=== PATIENT | male | born 1945 | race Caucasian/White ===

== ENCOUNTER 2023-07-01 21:40 | Emergency (ER) | payer MEDICARE, OTHER ==
[2023-07-01] MEDS ORDERED: Tetracaine 0.5% PF 4 ML BOT ONE (21:45)
[2023-07-01] MEDS ORDERED: Fluorescein Opthalmic Strip ONE (21:45)
[2023-07-01] MEDS ORDERED: Erythromycin Base 0.5% Oint 1 GM TUBE ONE (22:28)
== END 2023-07-01 22:37 | disposition home or self-care (01) ==
LOC: NAV ERS 21:40
DX: H16.133 Photokeratitis, bilateral (principal); T15.02XA Foreign body in cornea, left eye, initial encounter; T15.01XA Foreign body in cornea, right eye, initial encounter; I10 Essential (primary) hypertension; W44.9XXA Unspecified foreign body entering into or through a natural orifice, initial encounter
CPT/HCPCS: 99283

== ENCOUNTER 2025-01-22 15:12 | Emergency (ER) | payer OTHER | END 2025-01-22 17:33 | disposition home or self-care (01) | LOC: NAV ERS 15:12 | DX: S40.012A Contusion of left shoulder, initial encounter (principal); S50.02XA Contusion of left elbow, initial encounter; I10 Essential (primary) hypertension; I25.2 Old myocardial infarction; Z79.02 Long term (current) use of antithrombotics/antiplatelets; Z79.899 Other long term (current) drug therapy; W01.10XA Fall on same level from slipping, tripping and stumbling with subsequent striking against unspecified object, initial encounter ==